=== PATIENT | male | born 1970 | race Caucasian/White ===

== ENCOUNTER → 2022-02-07 09:06 | Outpatient (CLI) | payer OTHER, SELFPAY ==
--- NOTE | ~2022-02-07 | MR_ITS ---
EXAMINATION: MR elbow RT wo con DATE: 02/07/2022 09:57 INDICATION: Lateral epicondylitis at the right elbow TECHNIQUE: Magnetic resonance imaging (MRI) of the right elbow was performed without intravenous cont rast. Sequences included coronal, axial, and sagittal PD-weighted FS FSE and coronal, axial, and sagi ttal PD-weighted FSE. COMPARISON: None FINDINGS: Osseous/other: Normal alignment. Normal marrow signal with no marrow edema, fracture, osteochondral lesion or abnor mal marrow replacing process. Tendons: Triceps, biceps brachii and brachialis tendons are normal. Common flexor tendon wad is normal. Mild tendinopathy and partial-thickness tear along the deep margin of the lateral epicondylar origin of th e common extensor tendon wad. The torn region of the footplate measures approximately 3 mm proximal t o distal and 7 mm anteroposteriorly. For reference the entire footplate measures approximately 11 mm proximal to distal and 14 mm AP. Ligaments: The medial and lateral collateral ligament complexes are normal. Cubital tunnel: Cubital tunnel is unremarkable with normal signal and caliber of the ulnar nerve. Fluid: Physiologic amount of fluid the elbow joint. IMPRESSION: 1. Mild tendinopathy and partial-thickness tear along the lateral epicondylar footplate of the deep a spect of the common extensor tendon wad. Reviewed, dictated and finalized at location A. T DISTRIBUTOR IMPRESSION: 1. Mild tendinopathy and partial-thickness tear along the lateral epicondylar f ootplate of the deep aspect of the common extensor tendon wad.
== END ==
PROVIDERS: PCP Pediatrics; Visit Provider Orthopaedic Surgery
DX: G56.31 Lesion of radial nerve, right upper limb (principal); M77.11 Lateral epicondylitis, right elbow; M77.8 Other enthesopathies, not elsewhere classified
CPT/HCPCS: 73221

== ENCOUNTER 2022-02-20 01:56 | Day surgery (SDC) | payer OTHER, SELFPAY ==
[2022-02-14 09:32] VITALS: BMI 32.1
--- NOTE | 2022-02-14 09:37 | PC.NURSE ---
Report to the Outpatient Waiting Room, entrance under the green pavilion located off [facility], at time 0700 on date 02/20/22. Planned Procedure Time: 0900. Time changes happen often and if your time is changed the preop area will call you the afternoon before. - You and your visitor will be asked to self-screen and do not enter if you have any COVID symptoms. - Only one visitor is requested with a max of two and NO children visitors are allowed at this time. - The patient visitor may be requested to leave or wait in car when not with patient due to distancing restrictions. - A mask is optional within the hospital. Patients may have clear liquids (water, carbonated beverages, clear teas, apple juice) until 3 hours prior to surgery with a maximum of 20 ounces. - No food from midnight until time of surgery Take the following medications with a SIP of water the morning of surgery: NONE Medications to discontinue per physician: N/A Date to take last dose: N/A Please no make-up, nail romansh, hairspray, perfume, deodorant, or body powder the day of surgery. No jewelry (including any body piercings) or valuables the day of surgery, leave them at home. Please take a shower or bath the night before, or the morning of, surgery with an antibacterial soap. Wear comfortable, loose fitting clothing. - Jewelry must be removed prior to entering the operating room. Rings and piercings that are not removed may be cut off. - The hospital will not accept responsibility for valuables. - Please leave all valuables, including medications, at home the day of surgery. If you are going home after surgery, a licensed wheelchair van driver must drive you home. - NO public transportation without another adult if you receive anesthesia. - We recommend that an adult stay with you for 24 hours following discharge. - We also recommend that you do not drive, make important decision, drink alcoholic beverages, or take any drugs that were not prescribed by your health care provider for at least 24 hours after your discharge time. Follow any additional instructions given to you from your surgeon. If you or anyone in your household have experienced Covid symptoms in the past week, please notify your surgeon or the nurse liaison at the phone number below for possible testing. Telephone instructions given to PT - NICOLÁS FOPPE and asked if any additional questions and then verbalized understanding. Patient advised to call surgeon office or pre surgery nurse liaison [phone] if any additional questions.
[2022-02-20] VITALS (13 sets, daily range): BP systolic 82–145; BP diastolic 49–89; PULSE 47–76; RESP 10–16; TEMP 36.1–36.2; O2SAT 97–100
--- NOTE | 2022-02-20 06:41 | WPDANESEPPF ---
Anes - Initial Pre Proc Eval Procedure: Operation Date: 02/20/22 07:30 Proposed Procedures p Debridement of Right Lateral Epicondyle - Levi Hoyt MD Date/Time: 02/20/22 06:41 Surgeon: Levi Hoyt MD Pre Op Diagnosis: right lateral epicondylitis Patient Data Age: 51 Gender: M Height: 1.8 m Weight: 104.33 kg Allergies Allergy/AdvReac Type Severity Reaction Status Date / Time No Known Allergies Allergy Verified 02/14/22 09:31 Home Medications Medication Instructions Recorded Confirmed Type hydrocortisone-pramoxine 1 %-1 % 1 applic topical BID PRN Rash 11/29/20 02/14/22 History topical cream (Pramosone) ibuprofen 200 mg capsule 200 mg PO Q6H PRN Pain 04/25/21 02/14/22 History esomeprazole magnesium 20 mg 20 mg PO DAILY 11/08/21 02/14/22 History capsule,delayed release (Nexium 24HR) Patient hx anesthesia problems: none Family hx anesthesia problems: none Results Review: All pre-operative results and documents have been reviewed as part of the pre-operative evaluation. 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 Right lateral epicondylitis Sleep apnea Family History Family History Father Heart disease Cerebrovascular accident Mother Hypertension Other Diabetes mellitus Stomach cancer Social History Social History Smoking status: Former smoker Additional smoking assessment comments: IN COLLEGE 30 YRS AGO Alcohol intake: never Substance use: never Substance use type: does not use Living arrangements: with family Additional occupation/education comments: [employer] Gender identity (if verbalized by the patient): Male Spiritual care concerns: No Anes - Eval Final PreProcedure Day of Procedure 02/20/22 06:41 Patient weight: obese Heart: regular rate and rhythm Lungs: clear to auscultation Airway: Mallampati scale class II Neurological: alert and oriented Last oral intake: >/= 8 hours ASA classification: III Emergent: no Anesthetic plan: proceed Anesthesia type and monitoring: general LMA and standard monitoring Results Review: All pre-operative results and documents have been reviewed as part of the pre-operative evaluation. Informed Consent: The patient's anesthetic plan and its attendant risks and benefits were discussed with the patient/family/POA. Questions were solicited and answers provided to the satisfaction of the patient/family/POA.
[2022-02-20] MEDS: KETOROLAC 15 MG/ML VIAL (*BKC) IV PUSH (06:45)
[2022-02-20] MEDS: ACETAMINOPHEN 500 MG TABLET 1000 MG PO (06:45)
[2022-02-20] MEDS: LACTATED RINGERS 1,000 ML 30 ML IV CONT ×2 (06:45→10:00)
--- NOTE | 2022-02-20 07:18 | WPDHPUPDATE1 ---
History and Physical Update Update Date/Time: 02/20/22 07:18 History and Physical has been reviewed, including an updated exam of the patient. There are NO changes in the patient's condition. Risks, benefits, and alternatives have been discussed and questions answered. Patient agrees to proceed with procedure.
[2022-02-20] MEDS: ceFAZolin 2 GM/D5W 50 ML 2 GM/50 ML BAG IVPB (07:28)
--- NOTE | 2022-02-20 08:42 | P.OP_ITS ---
Procedure Note - Detailed Date of Procedure 02/20/22 Pre-op Diagnosis right lateral epicondylitis Post-op Diagnosis Same Procedure Performed Right lateral epicondylar debridement Surgeon Levi Hoyt MD [employer] Althea Christensen Anesthesia General Description of Procedure The patient was identified and proper site identified. He was taken back to the operating area and transferred to the OR table to and care to pad his torso and extremities. After general anesthetic induction and intubation, a nonsterile tourniquet was placed high on the right arm. Right upper extremity was prepped and draped free in the usual sterile fashion. Total of 10 cubic centimeters of 0.25% plain Marcaine was infiltrated into the subcutaneous tissue around the right lateral epicondylar area. Extremity was exsanguinated and the tourniquet was inflated to 250 millimeters of mercury, remaining up for 21 minutes. A longitudinal incision was made over the lateral epicondyle and extending distally in line with the fibers of the tendinous origin. Subcutaneous tissue was sharply dissected down to the epicondyle and tendinous attachment. There was quite a bit of focal erythema over the tendinous origin. The origin was released off of the lateral epicondyle and then tendon divided in a longitudinal fashion. The degenerative tissue from within was debrided back to healthier appearing tissue. Prominent lateral epicondyle was debulked with a rongeur. Wound was irrigated with sterile saline. Tendon edges were reapproximated [id number] with 4-0 Monocryl suture. Skin edges were reapproximated with 3-0 V lock and tissue adhesive for the skin. Sterile dressing was applied. Tourniquet was released. He tolerated the procedure well. Patient was awakened, extubated and taken to recovery area in stable condition. There were no known intraoperative complications. Estimated blood loss negligible. He received perioperative antibiotics. Estimated Blood Loss 2 Tourniquet Time 21 Drains No Packing No Pathology None sent Complications No immediate complications Condition Stable Disposition PACU
[2022-02-20] MEDS: fentaNYL CITRATE INJ (*CRX) 100 MCG/2 ML VIAL 25 MCG IV PUSH ×2 (09:06→09:09)
--- NOTE | 2022-02-20 09:10 | SUR.PHASEI ---
0900: Simple mask removed.
[2022-02-20] MEDS: ONDANSETRON INJ 4 MG/2 ML VIAL IV PUSH (09:13)
[2022-02-20] MEDS: oxyCODONE HCL (*CRX) 5 MG TAB IR PO (09:42)
[2022-02-20 09:47] LABS: Hepatitis B Surface Antigen Negative (Negative)
[2022-02-20] MEDS: diphenhydrAMINE HCl INJ 50 MG/ML VIAL 12.5 MG IV PUSH (10:00)
[2022-02-20 10:04] LABS: HIV 1/2 Ab P24 Ag Result Negative (Negative); Hepatitis C Virus Antibody Negative (Negative)
[2022-02-20] MEDS: SCOPOLAMINE 1.5 MG PATCH TRANSDERM (10:17)
--- NOTE | 2022-02-20 10:21 | SUR.PHASEII ---
1015 - pt with c/o nausea. treated. diaphoretic, bp low. lr hung . pt resting at present.
--- NOTE | 2022-02-20 10:29 | SUR.PHASEII ---
1029 - pt more wakeful now. bp continues to come back up. no further diaphoresis. fluids infusing.
== END 2022-02-20 11:12 | disposition home or self-care (01) ==
PROVIDERS: PCP Pediatrics; Visit Provider Orthopaedic Surgery
PROC: (CPT 24110; principal; 2022-02-20 07:30)
DX: M77.11 Lateral epicondylitis, right elbow (principal); E66.9 Obesity, unspecified; Z68.32 Body mass index [BMI] 32.0-32.9, adult; Z11.4 Encounter for screening for human immunodeficiency virus [HIV]
CPT/HCPCS: 24359; 36415; 86703; 86803; 87340; A4565; A9270; G0432; J0690; J1100; J1200; J1885; J2250; J2405; J2704; J3010; J7120